=== PATIENT | male | born 1960 | race Caucasian/White ===

== ENCOUNTER 2017-09-04 15:23 | Emergency (ER) | payer OTHER ==
--- NOTE | 2017-09-04 15:37 | PHYS DOC ---
Adult General Chief Complaint Chief Complaint: LACERATION/AVULSION HPI HPI Patient is a 57 year old male who presents with had a laceration. He slipped and fell this morning on the ice and denies getting knocked out but states starts. He states he has a laceration to posterior aspect of his scalp that has been oozing all day. He did do some Tylenol this morning. He is unsure when his last tetanus shot was. He denies any neck pain or any other injuries. Review of Systems Review of Systems Constitutional: Denies fever or chills [] Eyes: Denies change in visual acuity, redness, or eye pain [] HENT: Denies nasal congestion or sore throat [] Respiratory: Denies cough or shortness of breath [] Cardiovascular: No additional information not addressed in HPI [] GI: Denies abdominal pain, nausea, vomiting, bloody stools or diarrhea [] : Denies dysuria or hematuria [] Musculoskeletal: Denies back pain or joint pain [] Integument: Denies rash or skin lesions [] Neurologic: Denies headache, focal weakness or sensory changes [] Endocrine: Denies polyuria or polydipsia [] All other systems were reviewed and found to be within normal limits, except as documented in this note. Physical Exam Physical Exam Constitutional: Well developed, well nourished, no acute distress, non-toxic appearance. [] HENT: Normocephalic, bilateral external ears normal, oropharynx moist, no oral exudates, nose normal. [] Eyes: PERRLA, EOMI, conjunctiva normal, no discharge. [] Neck: Normal range of motion, no tenderness, supple, no stridor. [] Cardiovascular:Heart rate regular rhythm, no murmur [] Lungs & Thorax: Bilateral breath sounds clear to auscultation [] Abdomen: Bowel sounds normal, soft, no tenderness, no masses, no pulsatile masses. [] Skin: Warm, dry, no erythema, no rash. [] Back: No tenderness, no CVA tenderness. [] Extremities: No tenderness, no cyanosis, no clubbing, ROM intact, no edema. [] Neurologic: Alert and oriented X 3, normal motor function, normal sensory function, no focal deficits noted. [] Psychologic: Affect normal, judgement normal, mood normal. [] EKG EKG [] Radiology/Procedures Radiology/Procedures [address] [address] IMAGING REPORT Signed PATIENT: LYNDSEY JACK ACCOUNT: [id number] : 1960 LOCATION: ER AGE: 57 SEX: M EXAM STATUS: REG ER ORD. PHYSICIAN: LYLA PEREIRA MD REASON: head trauma PROCEDURE: CT HEAD WO CONTRAST Clinical indications: Trauma. Fell and hit back of head. Laceration on back of head. Headache. Comparison: None available.. Technique: Noncontrast axial cross sectional scanning of the head was performed. PQRS Compliance Statement: One or more of the following individualized dose reduction techniques were utilized for this examination: 1. Automated exposure control 2. Adjustment of the mA and/or kV according to patient size 3. Use of iterative reconstruction technique Findings: No acute intracranial hemorrhage or midline shift or mass-effect or hydrocephalus or extra-axial fluid collection is seen. No focal hypodense area or sulci effacement is seen to indicate an acute infarct or edema radiographically. No skull fracture or pneumocephalus is seen. No opacification of the mastoid sinuses or the paranasal sinuses is seen. The maxillary sinuses are not completely seen in this study. Impression: No acute intracranial abnormality is seen. DICTATED AND SIGNED BY: BRISA TOSCANO MD DATE: 09/04/171605 CC: LYLA PEREIRA MD; PCP,NO ~ Impressions: Scalp laceration Course & Med Decision Making Course & Med Decision Making Pertinent Labs and Imaging studies reviewed. (See chart for details) 2 similar laceration to posterior scalp there is repaired with morgan. He is instructed to come back in 8-10 days have these removed. Return precautions given. Tetanus was updated. He continues Tylenol for pain and discomfort. He is return back to ER if he has high fevers, worsening pain, confusion, or other concerns. Dragon Disclaimer Dragon Disclaimer This electronic medical record was generated, in whole or in part, using a voice recognition dictation system. Departure Departure: Impression: Primary Impression: Scalp laceration Disposition: 01 HOME, SELF-CARE Condition: STABLE Patient Instructions: Laceration Care, Adult Additional Instructions: We placed 3 morgan in your head to have these removed in about 8-10 days. You return back to ER to have these removed. Oriented to go to your primary care physician's office. If you develop severe headache, confusion, fevers or other concerns please return back to ER. You can use [id number] Tylenol for aches and pains. Laceration Repair Lac Repair Indication: Laceration Procedure: The patient was placed in the appropriate position and the area was then saline. The laceration was 3 morgan. The wound area was then dressed with gauze. Total repaired wound length: 2 cm. The patient tolerated the procedure well. Complications: No complications noted. Problem Qualifiers Primary Impression: Scalp laceration Encounter type: initial encounter Qualified Codes: S01.01XA - Laceration without foreign body of scalp, initial encounter LYLA PEREIRA MD Sep 04, 2017 15:37
[2017-09-04] MEDS ORDERED: ACETAMINOPHEN 500 MG TABLET PO ONE ×2 (16:07→16:15)
--- NOTE | 2017-09-04 16:12 | RAD ---
Clinical indications: Trauma. Fell and hit back of head. Laceration on back of head. Headache. Comparison: None available.. Technique: Noncontrast axial cross sectional scanning of the head was performed. PQRS Compliance Statement: One or more of the following individualized dose reduction techniques were utilized for this examination: 1. Automated exposure control 2. Adjustment of the mA and/or kV according to patient size 3. Use of iterative reconstruction technique Findings: No acute intracranial hemorrhage or midline shift or mass-effect or hydrocephalus or extra-axial fluid collection is seen. No focal hypodense area or sulci effacement is seen to indicate an acute infarct or edema radiographically. No skull fracture or pneumocephalus is seen. No opacification of the mastoid sinuses or the paranasal sinuses is seen. The maxillary sinuses are not completely seen in this study. Impression: No acute intracranial abnormality is seen.
[2017-09-04] MEDS ORDERED: DIPHTH,PERTUSS(ACELL),TET TOX 0.5 ML DISP.SYRIN. VAX IM ONE (16:15)
[2017-09-04 16:27] VITALS: BP 146/98
== END 2017-09-04 16:27 | disposition home or self-care (01) ==
LOC: ER 15:23
DX: S01.01XA Laceration without foreign body of scalp, initial encounter (principal); W18.2XXA Fall in (into) shower or empty bathtub, initial encounter; Y93.89 Activity, other specified; Y99.8 Other external cause status; Y92.89 Other specified places as the place of occurrence of the external cause
CPT/HCPCS: 12001; 70450; 90471; 90715; 99284-25

== ENCOUNTER → 2019-12-16 | Outpatient (CLI) | payer OTHER ==
[~2019-12-16] MED LIST: MULT-121 PO; ONDA4TAB12 PO; OXYB10TA7 PO
== END | disposition home or self-care (01) ==
LOC: LAB 13:38
PROVIDERS: ATTEND Registered Nurse
DX: Z11.59 Encounter for screening for other viral diseases (principal)
CPT/HCPCS: C9803; U0003

== ENCOUNTER → 2019-12-18 | Day surgery (SDC) | payer OTHER ==
[~2019-12-18] MED LIST changes: +IPRATRPIUM/ALBUTEROL 0.5/2.5MG 3 ML NEBU. NEB PRN; +IV RINGERS SOLUTION,LACTATED 1,000 ML IV SCH; +ONDANSETRON PF 4 MG/2 ML VIAL. IV PRN; +PROPOFOL 10,000 MCG/ML (20ML) VIAL IV ONE
[2019-12-18 12:36] VITALS: BP 162/98
--- NOTE | 2019-12-22 16:06 | PATHOLOGY ---
[facility] Accession Number: [id number] . 01 Material submitted: . PART A: colon - DESCENDING POLYP. Modifiers: descending PART B: cecum - CECAL POLYP PART C: colon - TRANSVERSE POLYP. Modifiers: transverse PART D: colon - SIGMOID POLYP. Modifiers: sigmoid . 02 Diagnosis: A. Colon biopsy, descending colon polyp: - Sessile serrated polyp/adenoma. . B. Colon biopsies, cecal polyps: - Sessile serrated polyps/adenomas. . C. Colon biopsy, transverse colon polyp: - Sessile serrated polyp/adenoma. . D. Colon biopsy, sigmoid polyp: - Sessile serrated polyp/adenoma. . (PEDRITOM:bronson; 12/22/2019) [facility] 12/22/2019 1227 Local . 02 Comment: There is no high-grade dysplasia or evidence of malignancy. (TORI:bronson; 12/22/2019) . 02 Electronically signed: . Lyndon Zimmerman MD, Pathologist NPI- [id number] . 01 Gross description: . A. The specimen is received in formalin, labeled "Spurlin, Franco, descending polyp" it is of a polypoid segment of brown tissue measuring 1.2 x 0.6 x 0.5 cm. The margin is inked black. It is trisected and entirely submitted in A1. . B. The specimen is received in formalin, labeled "Spurlin, Franco, cecal polyp" and consists of 4 fragments of teran-brown tissue measuring 1.4 x 1.3 x 0.4 cm in aggregate which are entirely submitted in B1. . C. The specimen is received in formalin, labeled "Spurlin, Franco, transverse polyp" and consists of a polypoid segment of brown tissue measuring 0.6 x 0.5 x 0.3 cm. It is inked, bisected, and entirely submitted in C1. . D. The specimen is received in formalin, labeled "Spurlin, Franco, sigmoid polyp" and consists of a fragment teran-brown tissue measuring 0.5 x 0.5 x 0.3 cm which is entirely submitted in D1. (SDY; 12/19/2019) [facility]U 12/19/2019 1051 Local . 02 Pathologist provided ICD-10: D12.4, D12.0, D12.3, D12.5 . 02 CPT . 407067, 227249, [id number], [id number] Specimen Comment: A courtesy copy of this report has been sent to [phone], [phone] Specimen Comment: [id number] Specimen Comment: Report sent to / DR THOMPSON Performed at: 01 [facility] [address] [facility] [address], [place] [id number] MD Darrel Castaneda MD Phone: [phone] Performed at: 02 [facility] [address] [place], [place] [id number] MD Lyndon Zimmerman MD Phone: [phone]
== END | disposition home or self-care (01) ==
LOC: SURG 10:02
PROVIDERS: ATTEND Internal Medicine Gastroenterology
DX: Z12.11 Encounter for screening for malignant neoplasm of colon (principal); D12.0 Benign neoplasm of cecum; D12.4 Benign neoplasm of descending colon; D12.5 Benign neoplasm of sigmoid colon; D12.3 Benign neoplasm of transverse colon; K57.30 Diverticulosis of large intestine without perforation or abscess without bleeding; K60.2 Anal fissure, unspecified; K64.4 Residual hemorrhoidal skin tags; K64.8 Other hemorrhoids; Z88.1 Allergy status to other antibiotic agents; I10 Essential (primary) hypertension; M19.90 Unspecified osteoarthritis, unspecified site; Z79.899 Other long term (current) drug therapy; Z98.890 Other specified postprocedural states; Z86.010 Personal history of colon polyps
CPT/HCPCS: 45385; 88305; J2704; J7120

== ENCOUNTER 2019-12-19 12:47 | Emergency (ER) | payer OTHER ==
[~2019-12-19] VITALS: Ht 177.8 cm; Wt 105.3 kg
[~2019-12-19 12:47] MED LIST changes: -IPRATRPIUM/ALBUTEROL 0.5/2.5MG 3 ML NEBU. NEB PRN; -IV RINGERS SOLUTION,LACTATED 1,000 ML IV SCH; -ONDA4TAB12 PO; -ONDANSETRON PF 4 MG/2 ML VIAL. IV PRN; -PROPOFOL 10,000 MCG/ML (20ML) VIAL IV ONE
[2019-12-19] MEDS ORDERED: IV NORMAL SALINE 1,000ML 1,000 ML IV SCH (13:29)
[2019-12-19] MEDS ORDERED: ONDANSETRON ODT 4 MG TAB.RAPDIS PO ONE (13:45)
[2019-12-19 13:50] VITALS: BP 159/97
--- NOTE | 2019-12-19 14:08 | PHYS DOC ---
Past History Past Medical History: Other Past Surgical History: Other Alcohol Use: Occasionally Drug Use: None General Adult EDM: Chief Complaint: POST-OP PROBLEM HPI: HPI: Patient is a 59-year-old male who presents with complaint of bloody stool. Patient states that he had a colonoscopy yesterday where they had removed 3 or 4 polyps. He states that yesterday he did have diarrhea as well as a lot of gas but did not pass any blood. He states that this morning, he had a bowel movement that had quite a bit of blood mixed in with that and then he had a second bowel movement that had small amount of blood in it. Patient does indicate that he feels a bit woozy. He denies any actual abdominal pain however. [] Review of Systems: Review of Systems: Constitutional: Denies fever or chills Respiratory: Denies cough or shortness of breath Cardiovascular: Denies chest pain or edema GI: Denies abdominal pain. Complains of loose bloody stools Integument: Denies rash Neurologic: Denies headache, focal weakness or sensory changes A full 10 point review of systems has been reviewed and is otherwise negative. Heart Score: Risk Factors: Risk Factors: DM, Current or recent (<one month) smoker, HTN, HLP, family history of CAD, obesity. Risk Scores: Score 0 - 3: 2.5% MACE over next 6 weeks - Discharge Home Score 4 - 6: 20.3% MACE over next 6 weeks - Admit for Clinical Observation Score 7 - 10: 72.7% MACE over next 6 weeks - Early Invasive Strategies Current Medications: Current Meds: Current Medications Medications (Trade) Dose Ordered Sig/[facility] Start Time Stop Time Status Last Admin Dose Admin Ondansetron HCl (Zofran Odt) 4 mg 1X ONCE 12/19/19 13:45 12/19/19 13:47 DC Sodium Chloride 1,000 ml @ 1,000 mls/hr Q1H 12/19/19 13:29 12/19/19 14:28 Allergies: Allergies: Allergies Coded Allergies Type Severity Reaction Last Updated Verified Sulfa (Sulfonamide Antibiotics) Allergy Unknown 12/18/19 Yes Physical Exam: PE: Constitutional: Well developed, well nourished, no acute distress, non-toxic appearance. [] HENT: Normocephalic, atraumatic, bilateral external ears normal, oropharynx moist, no oral exudates, nose normal. [] Eyes: PERRLA, EOMI, conjunctiva normal, no discharge. [] Neck: Normal range of motion, no tenderness, supple, no stridor. [] Cardiovascular: Regular rate and rhythm [] Lungs & Thorax: Bilateral breath sounds clear to auscultation [] Abdomen: Bowel sounds normal, soft, no tenderness. [] Skin: Warm, dry, no erythema, no rash. [] Extremities: No tenderness, no cyanosis, no clubbing, ROM intact, no edema. [] Neurologic: Alert and oriented X 3, no focal deficits noted. [] EKG: EKG: [] Radiology/Procedures: Radiology/Procedures: [] Course & Med Decision Making: Course & Med Decision Making Pertinent Labs and Imaging studies reviewed. (See chart for details) [] Dragon Disclaimer: Dragon Disclaimer: This electronic medical record was generated, in whole or in part, using a voice recognition dictation system. Departure Departure: Impression: Primary Impression: Colonoscopy causing post-procedural bleeding Disposition: 01 HOME/RESIDENCE PRIOR TO ADM Condition: STABLE Referrals: ALBERTO THOMPSON DO (PCP) Patient Instructions: Colonoscopy, Care After, Rectal Bleeding ABUNDIO GRIMALDO Jr., DO Dec 19, 2019 14:08
[2019-12-19 14:16] LABS: BASO % 1 % (0-3); EOS # 0.2 x10^3/uL (0.0-0.7); EOS % 3 % (0-3); HEMATOCRIT 46.6 % (39.0-53.0); LYMPH # 1.9 x10^3/uL (1.0-4.8); LYMPH % 28 % (24-48); MEAN CORPUSCULAR HEMOGLOBIN 31 pg (25-35); MEAN CORPUSCULAR HGB CONC 34 g/dL (31-37); MEAN CORPUSCULAR VOLUME 91 fL (79-100); MONO # 0.7 x10^3/uL (0.0-1.1); MONO % 9 % (0-9); NEUT # 4.2 x10^3uL (1.8-7.7); NEUT % 60 % (31-73); PLATELET COUNT 176 x10^3/uL (140-400); RED BLOOD COUNT 5.14 x10^6/uL (4.30-5.70); WHITE BLOOD COUNT 7.1 x10^3/uL (4.0-11.0)
[2019-12-19 14:23] LABS: CALCIUM 8.5 mg/dL (8.5-10.1); CREATININE 1.2 mg/dL (0.7-1.3); GFR 62.4; POTASSIUM 3.1 mmol/L (3.5-5.1)
[2019-12-19 14:29] LABS: ALBUMIN 3.6 g/dL (3.4-5.0); ALBUMIN/GLOBULIN RATIO 1.2 (1.0-1.7); TOTAL BILIRUBIN 0.4 mg/dL (0.2-1.0); TOTAL PROTEIN 6.6 g/dL (6.4-8.2)
[2019-12-19] MEDS ORDERED: ONDA4TAB12 PO (14:43)
[2019-12-19] MEDS ORDERED: POTASSIUM CHLORIDE 20 MEQ TABLET.ER. PO ONE (14:45)
== END 2019-12-19 15:25 | disposition home or self-care (01) ==
LOC: ER 12:47
DX: K91.840 Postprocedural hemorrhage of a digestive system organ or structure following a digestive system procedure (principal); Z88.2 Allergy status to sulfonamides
CPT/HCPCS: 36415; 80053; 85025; 99283